=== PATIENT | female | born 2000 | race Caucasian/White ===

== ENCOUNTER 2019-11-11 19:31 | Emergency (ER) | payer BC ==
[~2019-11-11] VITALS: Ht 167.6 cm; Wt 72.7 kg
[2019-11-11 20:07] VITALS: BP 132/84; TEMP 97
[2019-11-11 23:08] VITALS: PULSE 61
== END 2019-11-11 23:08 | disposition home or self-care (01) ==
LOC: COL.ER 19:31
DX: G43.909 Migraine, unspecified, not intractable, without status migrainosus (principal)
CPT/HCPCS: J1200; J1885; J2550; J7030

== ENCOUNTER 2021-05-23 23:02 | Emergency (ER) | payer BC ==
[~2021-05-23] VITALS: Ht 170.2 cm; Wt 72.7 kg
[2021-05-24 02:01] VITALS: BP 134/86; PULSE 87; TEMP 98.7
== END 2021-05-24 00:22 | disposition home or self-care (01) ==
LOC: COL.ER 23:02
DX: G89.18 Other acute postprocedural pain (principal); Z98.818 Other dental procedure status